=== PATIENT | female | born 1945 | race Caucasian/White ===

== ENCOUNTER 2016-06-19 14:39 | Inpatient (IN) | payer MEDICARE ==
[~2016-06-19] VITALS: Ht 170.2 cm; Wt 55.2 kg
--- NOTE | 2016-06-20 19:43 | ER ---
ADMIT: 06/19/2016 RM/LOC: 418 [facility] MR#: [id number] [id number] [address] LATANYA TABARES [address] [place] [address] Emergency Room Report SEX: F AGE: 71 : 1945 DATE: 06/19/2016 TIME: 1439 hours. Please refer to my T-sheet for complete H and P. HISTORY OF PRESENT ILLNESS: Briefly, the patient is a 71-year-old, who lives at home alone. Her brother went and checked on her. She has been sick with a cough and cold last couple of days. She is very weak. He brought her in for evaluation. She has a known history of COPD. Said that she still smokes a pack a day. PHYSICAL EXAMINATION: VITAL SIGNS: Her blood pressure is 104/53, pulse is 76, respirations are 24, temp 98.7, and sat 78% on room air and 91% on 2 L. GENERAL: She is no acute distress. HEENT: Very dry mucous membranes. LUNGS: Coarse with decreased breath sounds. HEART: Regular. ABDOMEN: Soft. SKIN: No rash. NEURO: She is weak, but nonfocal. EMERGENCY DEPARTMENT COURSE: We did sepsis protocol. Chest x-ray revealed COPD, diffuse interstitial changes, and a left lingular infiltrate. CBC normal except white count 10.7 and platelets 117. Chemistries normal except potassium 3.5, BUN 25, glucose 121, and creatinine 1.5. Cardiac enzymes negative. Coags normal. Lactate 1.3. Blood cultures x2 were sent. EKG was sinus rhythm, rate 71, no changes. We started antibiotics, gave her a DuoNeb, gave her sepsis fluid. She was stable, improved. Sats are better. Started antibiotics. We will admit her to the hospital. ASSESSMENT: 1. Left lingular pneumonia. 2. Chronic obstructive pulmonary disease exacerbation. 3. Sepsis, mild. 4. Hypoxemia. PLAN: Admit her to the hospital under the care of Dr. Byers. Dustin Doe MD/ fredo JOB #: [id number] CC: Richard Medellin MD, Attending Physician Richard Medellin MD, Family Physician
--- NOTE | 2016-06-20 20:12 | HP ---
ADMIT: 06/19/2016 RM/LOC: 418 [facility] MR#: [id number] [address] [address] LATANYA TABARES [address] [place], [place] [id number] History and Physical SEX: F AGE: 71 : 1945 DATE OF SERVICE: CHIEF COMPLAINT: Shortness of breath, weakness, and tiredness. HISTORY OF PRESENT ILLNESS: The patient is a very pleasant, 71-year-old female, normally sees Dr. Medellin in clinic, who reports since Monday, 2 days ago has had increasing weakness. Shortness of breath. Lethargy. She was found at home by family and brought to the emergency room. The patient reports some mild subjective fevers, although not known how high. Just overall general shortness of breath. Some occasional cough. Poor oral intake. No nausea. No vomiting. Previous to this, had been in her usual state of health. No chest pain. No change in bowel or bladder function. Weakness is just generalized and not localized to one extremity. PAST MEDICAL HISTORY: 1. Osteoporosis. 2. COPD, on chronic inhaler. 3. Anxiety and depression. 4. Hypertension. 5. Osteoporosis. MEDICATIONS: She is on: 1. ProAir. 2. Alprazolam p.r.n. 3. Carvedilol 12.5 mg b.i.d. 4. Benadryl p.r.n. 5. Breo 200/25, inhaled daily. 6. Ibuprofen p.r.n. ALLERGIES: DULOXETINE AND ESCITALOPRAM. SOCIAL HISTORY: She continues to smoke a pack per day and has done so for many years. Lives home alone. No alcohol use regularly. She has had 2 brothers of lung cancer. Another brother with multiple sclerosis. REVIEW OF SYSTEMS: As per HPI. Otherwise, completely reviewed and negative. PHYSICAL EXAMINATION: VITAL SIGNS: Reviewed. Blood pressure normal. She is afebrile 97.5, pulse is 60, respiratory rate is 16. She required 2 L of oxygen at this time to maintain sats greater than 90%. Initially came in, it was 77% on room air. GENERAL: She is alert and oriented x3. No acute distress. Appears tired appearing. Very thin appearing. HEENT: Normocephalic and atraumatic. Pupils equal, round, and reactive to light and accommodation. No icterus. Very dry mucous membranes. NECK: No lymphadenopathy. Trachea midline. Soft and supple. LUNGS: She is very tight. Poor airflow throughout. High-pitched wheeze throughout. Symmetric thoracic excursion. HEART: Regular rate and rhythm. No murmurs, rubs, or gallops. ADMIT: 06/19/2016 RM/LOC: 418 [facility] MR#: [id number] [address] LATANYA TABARES [address] [place] [address] History and Physical SEX: F AGE: 71 : 1945 ABDOMEN: Soft, nontender, nondistended. Bowel sounds present. EXTREMITIES: No cyanosis, clubbing, or edema. SKIN: She has had no rashes noted. Dry. Poor skin turgor throughout. NEUROLOGICAL: No focal deficits noted. Cranial nerves II through XII grossly intact. PSYCHIATRIC: She is very pleasant, normal insight. Normal affect. LABORATORY DATA: She has a creatinine of 1.5. Baseline is 0.8. Mag of 2.1. CK is 16. White count 7.7, hemoglobin 12.2, and platelets 117. Potassium 3.5, lactic acid 1.3. UA is negative. Procalcitonin elevated at 0.15. X-ray I reviewed myself. It looks like an early left lower lobe infiltrate. Otherwise chronic scarring and changes. ASSESSMENT: 1. Acute chronic obstructive pulmonary disease exacerbation. 2. Possible early pneumonia. 3. Acute kidney injury. PLAN: At this point in time, we will give her steroids and bronchodilators, start her on antibiotics. We will rehydrate her. Looks very dehydrated especially with acute kidney injury. I suspect some infiltrate on x-ray, and I suspect she has more of a pneumonia. We will see how she does in the next couple of days. The patient is agreeable to plan. Jorje Byers MD/ fredo JOB #: [id number] CC: Richard Medellin, Attending Physician Richard Medellin, Family Physician
--- NOTE | 2016-06-22 15:33 | DS ---
ADMIT: 06/19/2016 RM/LOC: 418 [facility] MR#: [id number] [address] LATANYA TABARES [address] [place], [place] [id number] Discharge Summary SEX: F AGE: 71 : 1945 ADMISSION DATE: 06/19/2016 DISCHARGE DATE: 06/22/2016 ATTENDING AT TIME OF DISCHARGE: Jorje Byers MD CONSULTATIONS: None. PROCEDURES: None. FINAL DIAGNOSES: 1. Acute COPD (chronic obstructive pulmonary disease) exacerbation. 2. Hypertension. 3. Acute kidney injury. REASON FOR ADMISSION: The patient is a very pleasant, 71-year-old female with increasing shortness of breath, requiring some oxygen now. Presented to the emergency room. Admitted for further stabilization. HOSPITAL COURSE: The patient was admitted. She had acute kidney injury due to decreased oral intake recently. She was hydrated up. She was placed on steroids, bronchodilators and antibiotics. Initially there was some concern for early infiltrate and pneumonia; however, repeat chest film really did not confirm this. Her course was consistent with a moderate to severe COPD exacerbation. She responded well to treatment and overall remained weak but improved. At time of discharge, her acute kidney injury resolved. She did have some struggles with hypertension and new agents were initiated for this. She felt safe and stable for discharge to intermediate facility but did not feel like she had enough strength yet to go back to home. Previously very independent woman exercising 3 times a week at the . Arrangements were made for her to go to intermediate facility. DISCHARGE INSTRUCTIONS: She will discharge to intermediate facility. Have PT, OT there. She will see Dr. Medellin in 7-10 days in the clinic. She has a BMP in 1 week. She will have a general diet. O2 to keep sats greater than 90%, and hopefully she will be weaned off over the next week. DISCHARGE MEDICATIONS: 1. She will be on Coreg 12.5 mg p.o. b.i.d. 2. Prednisone 40 mg for 2 days, 30 mg for 5 days, 20 mg for 5 days, 10 mg for 5 days. ADMIT: 06/19/2016 RM/LOC: 418 [facility] MR#: [id number] [address] LATANYA TABARES [address] [place] [address] Discharge Summary SEX: F AGE: 71 : 1945 3. Norvasc 10 mg daily. 4. Xanax 0.25 mg p.o. t.i.d. 5. Zestril 20 mg p.o. daily. 6. Zithromax 250 mg p.o. x2 days. 7. DuoNebs q.i.d. 8. Spiriva 18 mcg daily. 9. Tylenol p.r.n. 10.Breo daily inhaled. Please see list for full details. Notably, the new medications are Norvasc and lisinopril for her high blood pressure in addition to the antibiotic and steroid taper. Jorje Byers MD/ shreyas JOB #: [id number] CC: Jorje Byers MD, Attending Physician Richard Medellin MD, Family Physician
[2016-07-07] MEDS ORDERED: COREG DPS12.5 MG PO (06:55)
[2016-07-07] MEDS ORDERED: XANAX DPS0.25 MG PO (06:55)
[2016-07-07] MEDS ORDERED: DELTASONE DPS10 MG PO (06:55)
[2016-07-07] MEDS ORDERED: BREO ELLIP1 PUFF/DOS IH (06:56)
[2016-07-07] MEDS ORDERED: SPIRIVA18 MCG IH (06:56)
[2016-07-07] MEDS ORDERED: PROVENTIL2.5 MG/3 M IH (06:56)
[2016-07-07] MEDS ORDERED: NORVASC DPS10 MG PO (06:56)
[2016-07-07] MEDS ORDERED: ZESTRIL DPS20 MG PO (06:56)
[2016-07-07] MEDS ORDERED: NICOTINE PATCH1 EAC2 TD (06:58)
== END 2016-06-22 10:15 | DRG 191 ==
LOC: ER 14:39 → 4PCU 16:30
PROVIDERS: ADMIT Internal Medicine
DX: J44.1 Chronic obstructive pulmonary disease with (acute) exacerbation (principal); N17.9 Acute kidney failure, unspecified; F17.210 Nicotine dependence, cigarettes, uncomplicated; R09.02 Hypoxemia; M81.0 Age-related osteoporosis without current pathological fracture; F41.9 Anxiety disorder, unspecified; F32.9 Major depressive disorder, single episode, unspecified; I10 Essential (primary) hypertension

== ENCOUNTER 2016-06-22 09:37 | Inpatient (IN) | payer MEDICARE ==
[~2016-06-22] VITALS: Ht 170.2 cm; Wt 56.5 kg
--- NOTE | 2016-06-22 12:29 | NUR ---
06/22/16 1215 ANSWERED PT CALL LIGHT. UPON ENTERING , PT WAS ASKED IF SHE NEEDED HELP. SHE AT THAT TIME ASKED IF SHE NEEDED TO HAVE HELP TO GO TO THE BATHROOM. I DID TELL HER THAT SHE DOES NEED TO PUT ON THE CALL LIGHT AND ASK FOR HELP. SHE STATES THAT SHE JUST WENT TO THE BATHROOM, AND THEN PUT HER LIGHT ON. I DID ENCOURAGE HER TO ALWAYS USE THE CALL LIGHT. CLERK MELITON
--- NOTE | 2016-07-06 07:58 | NUR ---
MDS 3.0-OBSERVATION AND VISIT: PT. IS INDEPENDENT IN HER ROOM, AMBULATING IN THE HALLWAY INDEPEDENTLY. ALERT AND ORIENTED X 3. GAIT IS STEADY WITHOUT USE OF ASSISTED DEVICES. PT. STATES SHE IS GLAD TO BE GOING HOME, FEELS MUCH BETTER AND VOICES SHE HAD GOOD CARE WHILE SHE WAS HERE. PT. DRESSED HERSELF, SELF CARES FOR ALL HER ADLS. OFFERS NO C/O OF DISCOMFORT. WISHED HER GOOD LUCK AND GLAD SHE WAS DOING WELL.
--- NOTE | 2016-07-06 11:20 | NUR ---
PATIENT NOTE FOLLOWING A 14 DAY STAY HERE AT [facility] SKILLED CARE LATANYA HAS BEEN D/C TO HER HOME. SHE IS CURRENTLY INDEPENDENT WITH ALL TASKS OF DAILY LIVING. SHE REMAINS ALERT, ORIENTED AND VERY PLEASANT. LATANYA VOICED NO CONCERNS WITH HER CARE OR STAY AND WAS THANKFUL TO STAFF. HER BROTHER KELIN WAS WHO TRANSPORTED HER HOME AND HE WILL ALSO HELP HER WITH GETTING GROCERIES FOR THE FIRST TIME. LATANYA AND I TALKED ABOUT MEALS ON WHEELS AND SHE DID ASK THAT I CALL AND GET THEM STARTED FOR MONDAY THE , THIS HAS BEEN DONE. HHC VS. OUTPT. THERAPY WAS DISCUSSED AND DUE TO HER DOING WELL SHE IS THE RECOMMENDATION IS FOR HER TO RETURN TO HER ROUTINE OF GOING TO THE [facility] 3 DAYS A WEEK. LATANYA WAS HERE UNDER HER MEDICARE [facility]. PHYSICAL AND OCCUPATIONAL THERAPY REMAINED HER SKILLED SERVICES.
[2016-07-07] MEDS ORDERED: DELTASONE DPS10 MG PO (06:55)
[2016-07-07] MEDS ORDERED: COREG DPS12.5 MG PO (06:55)
[2016-07-07] MEDS ORDERED: XANAX DPS0.25 MG PO (06:55)
[2016-07-07] MEDS ORDERED: BREO ELLIP1 PUFF/DOS IH (06:56)
[2016-07-07] MEDS ORDERED: NORVASC DPS10 MG PO (06:56)
[2016-07-07] MEDS ORDERED: PROVENTIL2.5 MG/3 M IH (06:56)
[2016-07-07] MEDS ORDERED: ZESTRIL DPS20 MG PO (06:56)
[2016-07-07] MEDS ORDERED: SPIRIVA18 MCG IH (06:56)
[2016-07-07] MEDS ORDERED: NICOTINE PATCH1 EAC2 TD (06:58)
== END 2016-07-06 10:30 | disposition home or self-care (01) | DRG 192 ==
LOC: SNU 09:37
PROVIDERS: ADMIT Internal Medicine
PROC: F07Z9ZZ Gait Training/Functional Ambulation Treatment (ICD-10-PCS; principal; 2016-06-22)
PROC: F08Z4ZZ Home Management Treatment (ICD-10-PCS; principal; 2016-06-22)
DX: J44.1 Chronic obstructive pulmonary disease with (acute) exacerbation (principal); I10 Essential (primary) hypertension; F17.210 Nicotine dependence, cigarettes, uncomplicated; R09.02 Hypoxemia; M81.0 Age-related osteoporosis without current pathological fracture; F41.9 Anxiety disorder, unspecified; F32.9 Major depressive disorder, single episode, unspecified